=== PATIENT | female | born 1940 | race Caucasian/White ===

== ENCOUNTER → 2017-07-13 | Outpatient (CLI) | payer OTHER | LOC: FIMAGING 10:10 | PROVIDERS: ATTEND Family Medicine | DX: Z12.31 Encounter for screening mammogram for malignant neoplasm of breast (principal) | CPT/HCPCS: G0202 ==

== ENCOUNTER 2018-04-03 18:58 | Inpatient (IN) | payer OTHER ==
[2018-04-03] MEDS ORDERED: ONDANSETRON 4 MG/2 ML VIAL IVP ONE (19:40)
[2018-04-03] MEDS ORDERED: NS 1,000 ML IV ONE (19:40)
[2018-04-03] MEDS ORDERED: ONDANSETRON 4 MG/2 ML VIAL ONE (19:41)
--- NOTE | 2018-04-03 20:17 | EDPHY ---
H & P Time Seen by Provider: 04/03/18 19:59 HPI/ROS: CHIEF COMPLAINT: Abdominal pain and bloating HISTORY OF PRESENT ILLNESS: The patient is a history of a sclerosing mesenteritis, CT scan dated 09/28/2014 personally reviewed. She presents tonight since 5:00 p.m. After eating some potato chips at home with abdominal bloating and pain. She put a cold washcloth over her and took some Margarita- [place] and Coke and belch and burped, now she feels better. She still has a little bit of abdominal bloating but after Zofran she no longer has it radiating to the back and really her symptoms have mostly resolved as far as pain, she just feels bloated still. This was associated with single episode of mucus and blood at home in her stool but none since. No vomiting. REVIEW OF SYSTEMS: Eye: no change in vision ENT: no sore throat Cardiac: no chest pain or syncope Pulmonary: no cough or SOB Abdomen: HPI Musculoskeletal: HPI Skin: no rash Neuro: no headache Constitutional: no fever : no urinary symptoms A comprehensive 10 point review of systems is otherwise negative aside from elements mentioned in the history of present illness. PAST MEDICAL HISTORY: Sclerosing mesenteritis as noted above, bilateral cataracts, hysterectomy Social history: Here with her family including spouse and son General Appearance: Alert and conversant, cooperative. Eyes: No scleral icterus. ENT, Mouth: Normal mucous membranes. Respiratory: Normal respiratory effort, breath sounds equal, lungs are clear to auscultation. Cardiovascular: Regular rate and rhythm. Gastrointestinal: The abdomen was a little bit distended but bowel sounds are present and she has soft and nontender without any rebound or guarding, normal bowel sounds present. Neurological: Alert, face symmetric, normal motor and sensory in extremities. Skin: Warm and dry, no rashes. Musculoskeletal: No peripheral edema. Psychiatric: Not agitated. Emergency Department course/MDM: Patient with a history of previous abdominal tumor presents with pain and bloating concern for bowel obstruction considered. CT scan abdomen pelvis discussed and consented. 2150: SBO distal ileum reviewed with Digna; discussed with patient. Her surgeon Dr. Rangel will admit the patient. Smoking Status: Never smoked Constitutional: Initial Vital Signs Temperature (C) 36.6 C 04/03/18 19:13 Heart Rate 62 04/03/18 19:13 Respiratory Rate 18 04/03/18 19:13 Blood Pressure 193/73 H 04/03/18 19:13 O2 Sat (%) 95 04/03/18 19:13 O2 Delivery Mode Room Air Allergies/Adverse Reactions: Sulfa (Sulfonamide Antibiotics) Allergy (Intermediate, Verified 09/28/14 20:51) NAUSEA Home Medications: Medication Instructions Recorded Atenolol [Tenormin 25 mg (*)] 09/28/14 Levothyroxine Sodium [Synthroid] 09/28/14 Medical Decision Making - Diagnostics Imaging Results: CT discussed with Russell shows distal small bowel obstruction. Imaging: Discussed imaging studies w/ on call Radiologist Differential Diagnosis: Differential considered including but not limited to bowel obstruction, gas or bloating, gastroenteritis, intestinal perforation. Consult/Admit Bed Type: Garrett Rangel will admit [id number] - Data Points Laboratory Results: Laboratory Results 04/03/18 20:25 04/03/18 20:25 04/03/18 04/03/18 04/03/18 21:12 20:42 20:25 WBC RBC Hgb POC Hgb 13.3 gm/dL gm/dL (12.6-16.3) Hct POC Hct 39 % % (38-47) MCV MCH MCHC RDW Plt Count MPV Neut % (Auto) Lymph % (Auto) [place] % (Auto) Eos % (Auto) Baso % (Auto) Nucleat RBC Rel Count Absolute Neuts (auto) Absolute Lymphs (auto) Absolute Monos (auto) Absolute Eos (auto) Absolute Basos (auto) Absolute Nucleated RBC Immature Gran % Immature Gran # POC Sodium 139 mEq/L mEq/L (135-145) Sodium 139 mEq/L mEq/L (135-145) POC Potassium 3.6 mEq/L mEq/L (3.3-5.0) Potassium 3.9 mEq/L mEq/L (3.3-5.0) POC Chloride 102 mEq/L mEq/L (97-110) Chloride 103 mEq/L mEq/L (97-110) Carbon Dioxide 22 mEq/l mEq/l (22-31) Anion Gap 14 mEq/L mEq/L (8-16) POC BUN 17 mg/dL mg/dL (7-23) BUN 17 mg/dL mg/dL (7-23) Creatinine 0.6 mg/dL mg/dL (0.6-1.0) POC Creatinine 0.6 mg/dL mg/dL (0.6-1.0) Estimated GFR > 60 Glucose 127 mg/dL H mg/dL (70-100) POC Glucose 137 mg/dL H mg/dL (70-100) Calcium 9.1 mg/dL mg/dL (8.5-10.4) Urine Color PALE YELLOW Urine Appearance CLEAR Urine pH 7.0 (5.0-7.5) Ur Specific [place] 1.005 (1.002-1.030) Urine Protein NEGATIVE (NEGATIVE) Urine Ketones NEGATIVE (NEGATIVE) Urine Blood NEGATIVE (NEGATIVE) Urine Nitrate NEGATIVE (NEGATIVE) Urine Bilirubin NEGATIVE (NEGATIVE) Urine Urobilinogen NEGATIVE EU EU (0.2-1.0) Ur Leukocyte Esterase NEGATIVE (NEGATIVE) Urine Glucose NEGATIVE (NEGATIVE) 04/03/18 20:25 WBC 9.18 10^3/uL 10^3/uL (3.80-9.50) RBC 4.38 10^6/uL 10^6/uL (4.18-5.33) Hgb 13.3 g/dL g/dL (12.6-16.3) POC Hgb Hct 39.5 % % (38.0-47.0) POC Hct MCV 90.2 fL fL (81.5-99.8) MCH 30.4 pg pg (27.9-34.1) MCHC 33.7 g/dL g/dL (32.4-36.7) RDW 12.6 % % (11.5-15.2) Plt Count 256 10^3/uL 10^3/uL (150-400) MPV 9.9 fL fL (8.7-11.7) Neut % (Auto) 77.2 % H % (39.3-74.2) Lymph % (Auto) 13.6 % L % (15.0-45.0) [place] % (Auto) 7.7 % % (4.5-13.0) Eos % (Auto) 1.0 % % (0.6-7.6) Baso % (Auto) 0.2 % L % (0.3-1.7) Nucleat RBC Rel Count 0.0 % % (0.0-0.2) Absolute Neuts (auto) 7.08 10^3/uL H 10^3/uL (1.70-6.50) Absolute Lymphs (auto) 1.25 10^3/uL 10^3/uL (1.00-3.00) Absolute Monos (auto) 0.71 10^3/uL 10^3/uL (0.30-0.80) Absolute Eos (auto) 0.09 10^3/uL 10^3/uL (0.03-0.40) Absolute Basos (auto) 0.02 10^3/uL 10^3/uL (0.02-0.10) Absolute Nucleated RBC 0.00 10^3/uL 10^3/uL (0-0.01) Immature Gran % 0.3 % % (0.0-1.1) Immature Gran # 0.03 10^3/uL 10^3/uL (0.00-0.10) POC Sodium Sodium POC Potassium Potassium POC Chloride Chloride Carbon Dioxide Anion Gap POC BUN BUN Creatinine POC Creatinine Estimated GFR Glucose POC Glucose Calcium Urine Color Urine Appearance Urine pH Ur Specific [place] Urine Protein Urine Ketones Urine Blood Urine Nitrate Urine Bilirubin Urine Urobilinogen Ur Leukocyte Esterase Urine Glucose Medications Given: Discontinued Medications Sodium Chloride (Ns) 1,000 mls @ 0 mls/hr IV ONCE ONE; Wide Open PRN Reason: Protocol Stop: 04/03/18 19:41 Last Admin: 04/03/18 19:48 Dose: 1,000 mls Ondansetron HCl (Zofran) 4 mg IVP EDNOW ONE Stop: 04/03/18 19:41 Last Admin: 04/03/18 19:48 Dose: 4 mg Point of Care Test Results: Chemistry 04/03/18 20:42 POC Sodium 139 mEq/L mEq/L (135-145) POC Potassium 3.6 mEq/L mEq/L (3.3-5.0) POC Chloride 102 mEq/L mEq/L (97-110) POC BUN 17 mg/dL mg/dL (7-23) POC Creatinine 0.6 mg/dL mg/dL (0.6-1.0) POC Glucose 137 mg/dL H mg/dL (70-100) ISTAT H&H 04/03/18 20:42 POC Hgb 13.3 gm/dL gm/dL (12.6-16.3) POC Hct 39 % % (38-47) Departure - Departure Disposition: [facility] Inpatient Acute Clinical Impression: Small bowel obstruction Condition: Good
[2018-04-03 20:46] LABS: PLATELET COUNT 256 10^3/uL (150-400)
[2018-04-03] MEDS ORDERED: IOPAMIDOL (ISOVUE-300) 100 ML BTL ONE (21:12)
[2018-04-03] MEDS ORDERED: HYDROmorphone HCL 0.5 MG/0.5 ML SYR IVP PRN (23:10)
[2018-04-03] MEDS ORDERED: ONDANSETRON 4 MG/2 ML VIAL IVP PRN (23:10)
--- NOTE | 2018-04-03 23:17 | SOAPPROG ---
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 MEDS SYNTHROID, ATENOLOL FAM HX NONCONTRIBUTORY ROS - 10 PT REVIEW HEENT NEG CHEST CLEAR COR RR ABD SOFT, DISTENDED, NONTENDER, +BS, NO HERNIAS, MIDLINE SCAR Plan:ADMIT FOR OBS/ NG IF WORSENING PAIN OR EMESIS, SURGERY IF NOT RESOLVING 04/03/18 23:12 Objective: Vital Signs Temp Pulse Resp BP Pulse Ox 36.9 C 77 16 202/75 H 95 04/03/18 22:00 04/03/18 23:02 04/03/18 23:02 04/03/18 23:02 04/03/18 23:02 04/02/18 04/03/18 04/04/18 05:59 05:59 05:59 Intake Total 1020 Balance 1020 ICD10 Worksheet Patient Problems: Problems Problem Status Onset Small bowel obstruction Acute Infection due to resistant organism Active
[2018-04-03] MEDS: D5W 1/2 NS W/ 20 KCl/L 1,000 ML IV SCH (23:48)
[2018-04-04 05:27] LABS: PLATELET COUNT 262 10^3/uL (150-400)
[2018-04-04] MEDS: LEVOTHYROXINE 112 MCG TAB PO SCH (06:16)
[2018-04-04] MEDS: D5W 1/2 NS W/ 20 KCl/L 1,000 ML IV SCH ×3 (06:30→23:13)
--- NOTE | 2018-04-04 07:54 | PDMN ---
Medical Necessity Medical necessity: Pt meets IP criteria per MD & MCG M210 Intestinal Obstruction (SBO), est los >2 days; requiring NPO status, IVFs, IV antiemetics & possible NG tube/surgery
[2018-04-04] MEDS: ATENOLOL 25 MG TAB PO SCH (09:09)
--- NOTE | 2018-04-04 09:52 | ASMTCMCOM ---
CM Note CM Note Notes: Chart reviewed for discharge needs. 78 year old female admitted via ED with c/o abdominal pain, nausea, vomiting and bloating. Diagnosed with SBO. Normally lives independently with family in [place]. Observing for increase or resolution l of symptoms. Patient of Dr. Rangel. Needs TBD at this time. CM to follow Plan: TBD Date Signed: 04/04/2018 09:51 AM Electronically Signed By:Beryl Jordan RN
--- NOTE | 2018-04-04 19:37 | SOAPPROG ---
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 MEDS SYNTHROID, ATENOLOL FAM HX NONCONTRIBUTORY ROS - 10 PT REVIEW HEENT NEG CHEST CLEAR COR RR ABD SOFT, DISTENDED, NONTENDER, +BS, NO HERNIAS, MIDLINE SCAR Plan:ADMIT FOR OBS/ NG IF WORSENING PAIN OR EMESIS, SURGERY IF NOT RESOLVING 04/03/18 23:12 04/04/18 19:36 Not much pain and passing some gas but still distended 2 way not improved Recheck 2 way in the a.m., possible surgery if not improving Objective: Vital Signs Temp Pulse Resp BP Pulse Ox 36.9 C 67 18 120/71 94 04/04/18 17:36 04/04/18 17:36 04/04/18 12:02 04/04/18 17:36 04/04/18 17:36 04/03/18 04/04/18 04/05/18 05:59 05:59 05:59 Intake Total 630 Balance 630 ICD10 Worksheet Patient Problems: Problems Problem Status Onset Small bowel obstruction Acute Infection due to resistant organism Active
[2018-04-05] MEDS: LEVOTHYROXINE 112 MCG TAB PO SCH (05:10)
--- NOTE | 2018-04-05 08:37 | SOAPPROG ---
SOAP Progress Note Assessment/Plan: Assessment: 78 y/o F admitted for SBO S: Feeling better. Passed lots of gas and stool last night and this am. O: Alert Afebrile RRR No increased WOB Abdomen: less distended, nontender, +BS Plan: Abdominal xray this am shows improved small bowel dilation. Continue conservative management. Hopefully pt will avoid surgery. 04/05/18 08:35 Objective: Vital Signs Temp Pulse Resp BP Pulse Ox 36.5 C 69 16 142/71 H 95 04/05/18 07:40 04/05/18 07:40 04/05/18 07:40 04/05/18 07:40 04/05/18 07:40 04/04/18 04/05/18 04/06/18 05:59 05:59 05:59 Intake Total 630 3740 Balance 630 3740 ICD10 Worksheet Patient Problems: Problems Problem Status Onset Small bowel obstruction Acute Infection due to resistant organism Active
[2018-04-05] MEDS: ATENOLOL 25 MG TAB PO SCH (08:47)
--- NOTE | 2018-04-05 10:59 | ASMTCMCOM ---
CM Note CM Note Notes: Pt improving and SBO treated with conservative management. No therapies ordered. D/c needs TBD. CM to follow. D/c plan of care: TBD Date Signed: 04/05/2018 10:59 AM Electronically Signed By:ADALBERTO Abarca
[2018-04-05 12:43] VITALS: BP 163/87
--- NOTE | 2018-04-05 15:18 | SOAPPROG ---
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 MEDS SYNTHROID, ATENOLOL FAM HX NONCONTRIBUTORY ROS - 10 PT REVIEW HEENT NEG CHEST CLEAR COR RR ABD SOFT, DISTENDED, NONTENDER, +BS, NO HERNIAS, MIDLINE SCAR Plan:ADMIT FOR OBS/ NG IF WORSENING PAIN OR EMESIS, SURGERY IF NOT RESOLVING 04/03/18 23:12 04/04/18 19:36 Not much pain and passing some gas but still distended 2 way not improved Recheck 2 way in the a.m., possible surgery if not improving 04/05/18 15:16 Seen earlier with my nurse practitioner Shireen Monteiro please refer to her note Presently doing well with positive bowel movements and flatus and afebrile/no bloating Small-bowel follow-through shows rapid transit time /she does have some mild dilatation the proximal bowel but no hang up in transit Suspect this represents some adhesions from her previous tumor biopsy but she is functioning well now/plan home and follow-up next week in the office of the structures stay on clear liquids until we see or Objective: Vital Signs Temp Pulse Resp BP Pulse Ox 36.6 C 66 16 163/87 H 94 04/05/18 12:00 04/05/18 12:00 04/05/18 12:00 04/05/18 12:00 04/05/18 12:00 04/04/18 04/05/18 04/06/18 05:59 05:59 05:59 Intake Total 630 3740 Output Total 0 Balance 630 3740 ICD10 Worksheet Patient Problems: Problems Problem Status Onset Small bowel obstruction Acute Infection due to resistant organism Active
--- NOTE | 2018-04-05 16:22 | ASMTCMCOM ---
CM Note CM Note Notes: Pt medically stable for d/c, no CM d/c needs identified Date Signed: 04/05/2018 04:21 PM Electronically Signed By:ADALBERTO Abarca
== END 2018-04-05 16:36 | disposition home or self-care (01) | DRG 390 ==
LOC: F3N 23:13 → OBSVTOIN 04-04 07:29
PROVIDERS: ADMIT Surgery; ATTEND Surgery
DX: K56.699 Other intestinal obstruction unspecified as to partial versus complete obstruction (principal)
CPT/HCPCS: 82435-PO; 82565-PO; 82947-PO; 84132-PO; 84295-PO; 84520-PO; 85014-PO; 96374; J2405; Q9967

== ENCOUNTER 2018-04-18 09:16 | Emergency (ER) | payer OTHER ==
--- NOTE | 2018-04-18 09:48 | EDPHY ---
H & P Stated Complaint: SBO 2 weeks ago feeling similar/nauseated Time Seen by Provider: 04/18/18 09:31 - Personal History Current Tetanus Diphtheria and Acellular Pertussis (TDAP): Unsure - Medical/Surgical History Hx Asthma: No Hx Chronic Respiratory Disease: No Hx Diabetes: No Hx Cardiac Disease: No Hx Renal Disease: No Hx Cirrhosis: No Hx Alcoholism: No Hx HIV/AIDS: No Hx Splenectomy or Spleen Trauma: No Other PMH: bilat cateract surgeries, hytsectomy, abdo exploratory, left knee, SBO - Social History Smoking Status: Never smoked Constitutional: Initial Vital Signs Temperature (C) 36.5 C 04/18/18 09:19 Heart Rate 63 04/18/18 09:19 Respiratory Rate 18 04/18/18 09:19 Blood Pressure 209/90 H 04/18/18 09:19 O2 Sat (%) 95 04/18/18 09:19 O2 Delivery Mode Room Air Allergies/Adverse Reactions: Sulfa (Sulfonamide Antibiotics) Allergy (Intermediate, Verified 04/18/18 09:19) NAUSEA Home Medications: Medication Instructions Recorded Aspirin EC [Aspirin EC 81 mg (*)] 81 mg PO DAILY 04/03/18 Atenolol [Tenormin 25 mg (*)] 25 mg PO DAILY 04/03/18 Cholecalciferol Vit D3 [Vitamin D3 2,000 units PO DAILY 04/03/18 (*)] Herbals/Supplements -Info Only 1 ea PO DAILY 04/03/18 Ibuprofen [Motrin (*)] 400 mg PO DAILY 04/03/18 Ibuprofen/Diphenhydramine Cit 2 each PO HS 04/03/18 [Advil Pm Caplet] Levothyroxine [Synthroid 112 mcg 112 mcg PO DAILY06 04/03/18 (*)] Medical Decision Making - Diagnostics Imaging Results: Imaging Impressions Abdomen CT 04/18/18 10:23 Impression: 1. Interval resolution of previously identified small bowel obstruction. 2. 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 Previous diagnosis of sclerosing mesenteritis. Imaging: I viewed and interpreted images myself ED Course/Re-evaluation: CHIEF COMPLAINT: Nausea, abdominal bloating HISTORY OF PRESENT ILLNESS: The patient is a 78 y/o female with a history of small bowel obstruction and multiple abdominal surgeries complaining of nausea and abdominal bloating. Around 2 weeks ago she was diagnosed with a small bowel obstruction associated with a pressure in her abdomen. This morning at 04:00, 6 hours ago, she woke up and had minor abdominal pain associated with bloating and loss of appetite. She then developed nausea and became concerned that she had another bowel obstruction. She does not have abdominal pressure like she did with her prior obstruction. She is unsure when her last normal bowel movement was. Denies headache, chest pain, shortness of breath, urinary complaints, numbness, paresthesias, fever. REVIEW OF SYSTEMS: A 10 point review of systems was performed and is negative with the exception of the elements mentioned in the history of present illness. PHYSICAL EXAM: HR, BP, O2 Sat, RR. Temp noted General Appearance: Alert, well hydrated, appropriate, and non-toxic appearing. Head: Atraumatic without scalp tenderness or obvious injury Eyes: Pupils equal, round, reactive to light and accommodation, EOMI, no trauma , no injection. Ears: Clear bilaterally, no perforation, normal landmarks Nose: Atraumatic, no rhinorrhea, clear. Throat: There is no erythema or exudates, no lesions, normal tonsils, mucus membranes moist. Neck: Supple, nontender, no lymphadenopathy. Respiratory: No retractions, no distress, no wheezes, and no accessory muscle use. Lungs are clear to auscultation bilaterally. Cardiovascular: Regular rate and rhythm, no murmurs, rubs, or gallops. Good capillary refill all extremities. Gastrointestinal: Abdomen has mild distension. It is soft, nontender, no masses , no rebound, no guarding, no peritoneal signs. Musculoskeletal: Normal active ROM of all extremities, atraumatic. Neurological: Alert, appropriate, and interactive. Nonfocal neuro. Skin: No rashes, good turgor, no nodules on palpation. Past medical history: Small bowel obstruction Past surgical history: Exploratory abdominal surgery, hysterectomy, bilateral cataract surgery, left knee surgery Family history: Denies Social history: Lives in [place], , retired DIAGNOSTICS/PROCEDURES/CRITICAL CARE TIME: Abdominopelvic CT: Resolution of small bowel obstruction DIFFERENTIAL DIAGNOSIS: The differential diagnosis for the patient's nausea and vomiting included but was not limited to gastroenteritis, gastritis, appendicitis, and medication side effect. MEDICAL DECISION MAKING: The patient is a 78 y/o female with a history of small bowel obstruction and multiple abdominal surgeries presenting with nausea and abdominal bloating. On exam she has mild abdominal distension. Labs and abdominopelvic CT ordered; 4mg IV Zofran and 1L IV NS ordered. 1136: Reassessed patient and discussed normal laboratory and imaging results. I have advised her follow up with Dr. Rangel, general surgeon, regarding the resolved small bowel obstruction. Return precautions provided; patient is comfortable with this plan. 1142: Consulted with Dr. Rangel, general surgeon, regarding this patient. He will see this patient in his office during an outpatient follow up. - Data Points Laboratory Results: Laboratory Results 04/18/18 09:51 04/18/18 09:51 04/18/18 04/18/18 09:51 09:51 WBC 5.92 10^3/uL 10^3/uL (3.80-9.50) RBC 4.56 10^6/uL 10^6/uL (4.18-5.33) Hgb 13.9 g/dL g/dL (12.6-16.3) Hct 40.1 % % (38.0-47.0) MCV 87.9 fL fL (81.5-99.8) MCH 30.5 pg pg (27.9-34.1) MCHC 34.7 g/dL g/dL (32.4-36.7) RDW 12.7 % % (11.5-15.2) Plt Count 288 10^3/uL 10^3/uL (150-400) MPV 9.7 fL fL (8.7-11.7) Neut % (Auto) 63.8 % % (39.3-74.2) Lymph % (Auto) 23.5 % % (15.0-45.0) [place] % (Auto) 9.8 % % (4.5-13.0) Eos % (Auto) 2.4 % % (0.6-7.6) Baso % (Auto) 0.3 % % (0.3-1.7) Nucleat RBC Rel Count 0.0 % % (0.0-0.2) Absolute Neuts (auto) 3.78 10^3/uL 10^3/uL (1.70-6.50) Absolute Lymphs (auto) 1.39 10^3/uL 10^3/uL (1.00-3.00) Absolute Monos (auto) 0.58 10^3/uL 10^3/uL (0.30-0.80) Absolute Eos (auto) 0.14 10^3/uL 10^3/uL (0.03-0.40) Absolute Basos (auto) 0.02 10^3/uL 10^3/uL (0.02-0.10) Absolute Nucleated RBC 0.00 10^3/uL 10^3/uL (0-0.01) Immature Gran % 0.2 % % (0.0-1.1) Immature Gran # 0.01 10^3/uL 10^3/uL (0.00-0.10) Sodium 141 mEq/L mEq/L (135-145) Potassium 4.1 mEq/L mEq/L (3.3-5.0) Chloride 107 mEq/L mEq/L (97-110) Carbon Dioxide 24 mEq/l mEq/l (22-31) Anion Gap 10 mEq/L mEq/L (8-16) BUN 15 mg/dL mg/dL (7-23) Creatinine 0.6 mg/dL mg/dL (0.6-1.0) Estimated GFR > 60 Glucose 105 mg/dL H mg/dL (70-100) Calcium 10.3 mg/dL mg/dL (8.5-10.4) Total Bilirubin 0.7 mg/dL mg/dL (0.1-1.4) Conjugated Bilirubin 0.4 mg/dL mg/dL (0.0-0.5) Unconjugated Bilirubin 0.3 mg/dL mg/dL (0.0-1.1) AST 22 IU/L IU/L (14-46) ALT 26 IU/L IU/L (9-52) Alkaline Phosphatase 92 IU/L IU/L (38-126) Total Protein 7.5 g/dL g/dL (6.3-8.2) Albumin 4.3 g/dL g/dL (3.5-5.0) Lipase 254 IU/L IU/L (23-300) Medications Given: Discontinued Medications Sodium Chloride (Ns) 1,000 mls @ 0 mls/hr IV EDNOW ONE; Wide Open PRN Reason: Protocol Stop: 04/18/18 10:24 Last Admin: 04/18/18 10:20 Dose: 1,000 mls Ondansetron HCl (Zofran) 4 mg IVP EDNOW ONE Stop: 04/18/18 10:01 Last Admin: 04/18/18 10:02 Dose: 4 mg Departure - Departure Disposition: Home, Routine, Self-Care Clinical Impression: Nausea Condition: Good Instructions: Acute Nausea and Vomiting (ED) Additional Instructions: 1. Follow up with Dr. Rangel regarding the resolution of your small bowel obstruction. 2. Return to the Emergency Department for fever, chest pain, shortness of breath , increasing pain or other worsening of condition. Referrals: Tamara Erwin MD [Primary Care Provider] - As per Instructions Lior Rangel MD [Medical Doctor] - As per Instructions Report Scribed for: Kyler Swanson Report Scribed by: Cookie Mathews Date of Report: 04/18/18 Time of Report: 09:48
[2018-04-18] MEDS ORDERED: ONDANSETRON 4 MG/2 ML VIAL IVP ONE (10:00)
[2018-04-18] MEDS ORDERED: ONDANSETRON 4 MG/2 ML VIAL ONE (10:01)
[2018-04-18 10:19] LABS: PLATELET COUNT 288 10^3/uL (150-400)
[2018-04-18] MEDS ORDERED: NS 1,000 ML IV ONE (10:23)
[2018-04-18] MEDS ORDERED: IOPAMIDOL (ISOVUE-300) 100 ML BTL ONE (10:42)
[2018-04-18 11:48] VITALS: BP 181/77
== END 2018-04-18 11:46 | disposition home or self-care (01) ==
DX: R11.0 Nausea (principal); E86.9 Volume depletion, unspecified; Z79.82 Long term (current) use of aspirin; Z90.710 Acquired absence of both cervix and uterus
CPT/HCPCS: 74177; 96361; 96374; 99285; J2405; Q9967

== ENCOUNTER → 2018-07-15 | Outpatient (CLI) | payer OTHER | LOC: FIMAGING 10:51 | PROVIDERS: ATTEND Family Medicine | DX: Z12.31 Encounter for screening mammogram for malignant neoplasm of breast (principal) ==

== ENCOUNTER 2019-02-26 19:51 | Emergency (ER) | payer OTHER ==
--- NOTE | 2019-02-26 21:15 | EDPHY ---
H & P Time Seen by Provider: 02/26/19 20:24 HPI/ROS: HPI Headache. 79-year-old female by private vehicle with her . This patient reports onset of a right frontal headache at approximately 4:00 p.m. 4:30 p.m. after straining while lifting a heavy reduction. She reports that it has persisted since that time. She denies any change in her vision. She describes it as being above her right eyebrow on involving the right side of her forehead and feeling more superficial than deep. She has not had any nausea or vomiting. No loss of sensation or weakness in her extremities. No confusion. No neck pain. No fever. She denies any other complaints. She is not on any anticoagulant or antiplatelet medications. She has a prior history of striking this exact area of her right forehead on hard concrete from a fall several years ago. She had a CT scan done at that time. She reports having a large hematoma as a result of this fall. She reports having intermittent continued pain to this area similar to what she presents with 2 day. ROS: Constitutional: No fever, no chills. No weakness. Eyes: No discharge. No changes in vision. ENT: No sore throat. No nasal congestion or rhinorrhea. Respiratory: No cough. No shortness of breath. Cardiac: No chest pain, no palpitations. Gastrointestinal: No abdominal pain, no vomiting, no diarrhea. Genitourinary: No hematuria. No dysuria or increased frequency with urination. Musculoskeletal: No back pain. No neck pain. No myalgias or arthralgias. Skin: No rashes. Neurological: As above. No focal weakness or altered sensation. Past medical history: Bilateral cataract surgeries, hysterectomy, small-bowel obstruction. Social history: Nonsmoker. No alcohol. Here with . Physical Exam: General Appearance: Alert, no distress. This patient is responding to questions appropriately and in full sentences. This patient appears well- hydrated and well-nourished. Head: Normocephalic atraumatic. No rashes. No swelling, erythema, edema noted on evaluation of the area of her pain. No tenderness over the right yazidi area. Eyes: Pupils equal and round and reactive to light at 3-2 mm bilaterally, no pallor or injection. No lid edema, erythema or injection. No nystagmus. No photophobia. ENT, Mouth: Mucous membranes are moist. The pharyngeal tissues are unremarkable. No edema or swelling. No asymmetry suggestive of abscess. No erythema or exudates. Respiratory: There are no retractions, lungs are clear to auscultation with good air movement bilaterally. Cardiovascular: Regular rate and rhythm. No murmur. Gastrointestinal: Abdomen is soft and nontender, no masses, bowel sounds normal. No focal tenderness at McBurney's point. No Boyce sign. Neurological: Motor sensory function is grossly intact. Cranial nerves are normal. Gait is normal. Skin: Warm and dry, no rashes on inspection of her forehead and scalp. Musculoskeletal: Neck is supple and nontender. No pain on flexion of her neck. No midline cervical, thoracic, lumbar tenderness on palpation. Extremities are symmetrical. All joints range without pain or impingement. Psychiatric: No agitation. No depression. Database: EKG: Imaging: CT brain without contrast: Negative. Hemangioma is unchanged from prior MR imaging. No evidence of bleeding. Results were discussed with staff radiologist Dr. Mushtaq Borges. Procedures: Emergency department course: Triage vital signs reviewed. She is hypertensive. Vital signs are otherwise normal. After my initial evaluation she was sent for CT head without contrast. 10:20 p.m., the patient was re-evaluated, she is feeling much better at this time. Repeat neurologic Assessment is nonfocal. She is alert and oriented. She denies any significant discomfort. Results of her CT scan were discussed with her, her and her daughter who is now present in the room. She feels comfortable going home with family and I feel she is safe for discharge. Follow-up and return to emergency department precautions were reviewed with her and family. All of their questions were answered. The patient was discharged in good condition with family. Differential Diagnosis: The differential diagnosis on this patient includes but is not limited to tension headache. Subarachnoid hemorrhage, intracranial mass, temporal arteritis, sagittal sinus thrombosis, cavernous sinus thrombosis unlikely. This represents a partial list of diagnoses considered. These considerations are based on history, physical exam, past history, reassessment and diagnostic testing. Smoking Status: Never smoked Constitutional: Initial Vital Signs Temperature (C) 36.7 C 02/26/19 19:53 Heart Rate 73 02/26/19 19:53 Respiratory Rate 18 02/26/19 19:53 Blood Pressure 196/97 H 02/26/19 19:53 O2 Sat (%) 96 02/26/19 19:53 O2 Delivery Mode Room Air Allergies/Adverse Reactions: Sulfa (Sulfonamide Antibiotics) Allergy (Intermediate, Verified 02/26/19 19:52) NAUSEA Home Medications: Medication Instructions Recorded Aspirin EC [Aspirin EC 81 mg (*)] 81 mg PO DAILY 04/03/18 Atenolol [Tenormin 25 mg (*)] 25 mg PO DAILY 04/03/18 Cholecalciferol Vit D3 [Vitamin D3 2,000 units PO DAILY 04/03/18 (*)] Herbals/Supplements -Info Only 1 ea PO DAILY 04/03/18 Ibuprofen [Motrin (*)] 400 mg PO DAILY 04/03/18 Ibuprofen/Diphenhydramine Cit 2 each PO HS 04/03/18 [Advil Pm Caplet] Levothyroxine [Synthroid 112 mcg 112 mcg PO DAILY06 04/03/18 (*)] Medical Decision Making - Diagnostics Imaging Results: Imaging Impressions Head CT 02/26/19 20:36 Impression: 1. Negative. No acute intracranial hemorrhage. 2. Suspected meningioma left middle fossa, unchanged since 2012. Findings discussed with Emergency Department physician, Robbi Braden M.D., on February 26, 2019 at 2119. Departure - Departure Disposition: Home, Routine, Self-Care Clinical Impression: Headache Condition: Good Instructions: Acute Headache (ED) Additional Instructions: Read and follow provided instructions. Follow-up with your primary care physician as needed in 1-2 days for re- evaluation. Return to the emergency department for worsening headache, confusion, nausea and vomiting, neck pain, fever or other serious concerns. Referrals: Lorie Banerjee MD [Primary Care Provider] - As per Instructions
[2019-02-26 21:58] VITALS: BP 178/64
== END 2019-02-26 22:35 | disposition home or self-care (01) ==
DX: R51 Headache (principal)